=== PATIENT | female | born 1980 | race Caucasian/White ===

== ENCOUNTER 2016-06-15 16:55 | Outpatient (CLI) | payer MEDICAID ==
[~2016-06-15] VITALS: Ht 162.6 cm; Wt 98.4 kg
[2016-06-15] MEDS ORDERED: CALC600T11 PO (17:18)
[2016-06-15] MEDS ORDERED: FER325 PO (17:18)
[2016-06-15] MEDS ORDERED: PREN1TAB62 PO (17:18)
[2016-06-15] MEDS ORDERED: FOLI-49 PO (17:18)
[2016-06-15 17:19] VITALS: BP 113/56; PULSE 64; RESP 18; Ht 162.6 cm; Wt 98.4 kg
--- NOTE | 2016-06-15 19:02 | TRIAGE ---
OB Triage Datetime Report Generated by CPN: 06/15/2016 19:02 Datetime: 06/15/2016 18:00 Stage of : OB Triage Maternal Assessment Level of Consciousness: Fully Conscious Labor Evaluation Frequency: 2UC/HR Monitor Mode: External Duration (sec)2399: 50-70 Quality: Mild Resting Tone [place]: Relaxed Heart Rate FHR Baseline Rate: 135 Monitor Mode: External US Variability: Moderate 6-25 bpm Accelerations: 15X15 Decelerations: None Category: Category I Pain Assessment Pain Scale: 0 Pain Presence: None/Denies Pain Goal: 3 Vaginal Exam Membrane Status: Intact Vaginal Bleeding: None Datetime: 06/15/2016 17:16 Assessment Type: Triage Maternal Assessment Level of Consciousness: Fully Conscious DTR's/Clonus: DTRs 2+; No Clonus Headache: Denies Blurred Vision: No Respiratory Effort: Unlabored; Regular Rhythm; Equal Expansion Breath Sounds, Left: Clear and Equal Breath Sounds, Right: Clear and Equal Nausea/Vomiting: Denies RUQ Epigastric Pain: Denies Lower Extremities Edema: None Degree: None Upper Extremities Edema: None Degree: None Facial Edema: None Fall Risk Assessment History of Falling: (0) No Secondary Diagnosis: (0) No Ambulatory Aid: (0) Bedrest/Nurse Assist IV Therapy: (0) No Gait: (0) Normal/Bedrest/Immobile Mental Status: (0) Oriented to Own Ability Fall Score: 0 Fall Risk Score Definition: No Risk: No action required Datetime: 06/15/2016 17:15 Time of Arrival: 06/15/2016 16:50 EGA: 30.5 Arrived By: Ambulatory Arrived From: Home Chief Complaint: C/O VAG. 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
--- NOTE | 2016-06-15 19:05 | RADRPT ---
PROCEDURE: US biophysical profile. CLINICAL INDICATION: Bleeding. well-being. TECHNIQUE: Multiple sonographic images of the uterus were obtained. The images were revi ewed on a PACS workstation. COMPARISON: No prior studies are available for comparison. FINDINGS: There is a single live intrauterine gestation. heart rate is 152 beats per minute. The position is cephalic. The placenta is fundal, grade 1. No evidence of placental abruption or previa. The SANDIE is 18 cm. Cervical length measures 5 cm. Breathing Movement: 2 Gross Body Movement: 2 Tone: 2 Qualitative Amniotic Fluid Volume: 2 TOTAL: 8 IMPRESSION: 1. Single viable intrauterine gestation. 2. Biophysical profile = 8. 3. SANDIE = 18 cm. RPTAT: HH .Don Mcneil MD, MD Date Time Electronically viewed and signed by .Don Mcneil MD, MD on 06/15/2016 19:04 .N/
--- NOTE | 2016-06-15 23:32 | QN ---
Documentation Comment 36 years old with IUP at 30 weeks and 5 days with complaint of blood noted after she wiped herself. she reports having some burning sensation and discharge for the past couple of days. She states she was cleaning the introitus and vagina due to burning sensation and feels that likely she scratched the area. she was noted some blood on the tiolet paper and for that reason is here. PE: GA: A&O, NAD Abdomen: Soft, non tender, Gravid. Fundal height: Consistent with GA. SSE: Cervix closed and long. Cottage cheesy vaginal discharge consistent with yeast noted. No blood in the vault BPP: 11/15 Blood group: O+ CL: 5 SANDIE: 18 NST: Cat 1, no contractions seen on the monitor PROCEDURE: US biophysical profile. CLINICAL INDICATION: Bleeding. well-being. TECHNIQUE: Multiple sonographic images of the uterus were obtained. The images were reviewed on a PACS workstation. COMPARISON: No prior studies are available for comparison. FINDINGS: There is a single live intrauterine gestation. heart rate is 152 beats per minute. The position is cephalic. The placenta is fundal, grade 1. No evidence of placental abruption or previa. The SANDIE is 18 cm. Cervical length measures 5 cm. Breathing Movement: 2 Gross Body Movement: 2 Tone: 2 Qualitative Amniotic Fluid Volume: 2 TOTAL: 8 IMPRESSION: 1. Single viable intrauterine gestation. 2. Biophysical profile = 11/15. 3. SANDIE = 18 cm. RPTAT: HH Assessment: IUP at 30 weeks and 5 days Vaginal bleeding likely from scratching due to irritation secondary to Charo vulvovaginitis Rh+ No evidence of previa or abruption Patient advised to use clotrimazole vaginal cream nightly for the next 7 days labor precaution and kick count discussed Follow-up with OB office in 2-3 days recommended Patient verbalized understanding All questions were answered to the patient's best satisfaction RAJ MOMIN MD Jun 15, 2016 23:32
== END 2016-06-15 19:15 | disposition home or self-care (01) ==
LOC: L-D 16:55 → OBT 16:55
PROVIDERS: ATTEND Obstetrics & Gynecology
DX: O23.593 Infection of other part of genital tract in pregnancy, third trimester (principal); B37.3 Candidiasis of vulva and vagina; O09.523 Supervision of elderly multigravida, third trimester; Z3A.30 30 weeks gestation of pregnancy
CPT/HCPCS: 76817; 76818; Z7500; G0463

== ENCOUNTER 2016-07-22 09:52 | Inpatient (IN) | payer MEDICAID ==
[~2016-07-22] VITALS: Ht 167.6 cm; Wt 102.4 kg
[2016-07-22] MEDS: LACTATED RINGER'S 1,000 ML IV SCH ×4 (02:30→20:00)
[~2016-07-22 09:52] MED LIST: CALC600T11 PO; FER325 PO; FOLI-49 PO; PREN1TAB62 PO
[2016-07-22 10:11] VITALS: Ht 167.6 cm; Wt 102.4 kg
[2016-07-22 10:12] VITALS: BP 102/62; PULSE 72
[2016-07-22] MEDS ORDERED: CEPH500C PO (10:14)
--- NOTE | 2016-07-22 11:16 | RADRPT ---
PROCEDURE: OB ultrasound for biophysical profile CLINICAL INDICATION: Vaginal bleeding TECHNIQUE: Multiple sonographic images of the pelvis were obtained. Transabdominal views of the g ravid uterus are available for review. The images were reviewed on a PACS workstation. COMPARISON: None FINDINGS: breathing movement = 2/2 tone = 2/2 motion = 2/2 SANDIE = 2/2 SANDIE = 12.6 cm Single live intrauterine with cardiac activity of 121 bpm. position is cephal ic. The placenta is posterior. IMPRESSION: 1. Single live intrauterine gestation. 2. Biophysical profile = 8/8. 3. SANDIE = 12.6 cm. RPTAT: HH .Jolene Fraser MD, MD Date Time Electronically viewed and signed by .Jolene Fraser MD, on 07/22/2016 11:16 .G/
--- NOTE | 2016-07-22 11:19 | RADRPT ---
PROCEDURE: US OB. CLINICAL INDICATION: Size and dates TECHNIQUE: Multiple sonographic images of the pelvis were obtained. Transabdominal imaging only w as performed. The images were reviewed on a PACS workstation. COMPARISON: No prior studies are available for comparison. FINDINGS: There is a single live intrauterine gestation. Cardiac activity is present with 115 beats per minut e. position is cephalic. Measurements were made in order to determine age. The results are as follows: BPD = 8.76 cm HC = 32.89 cm AC = 35.05 cm FL = 6.86 cm. Estimated gestational age of approximately 36 weeks 6 days. The estimated date of delivery is 08/13/2016. The EFW = 3230 g, 88 %ile. The placenta is posterior. There is no evidence for an abruption or placenta previa. There are no adnexal masses. IMPRESSION: 1. Single live intrauterine gestation of approximately 36 weeks 6 days, by ultrasound criteria. 2. The estimated date of delivery is 08/13/2016. 3. The estimated weight is 3230 g, 88 %ile. RPTAT: HH .Jolene Fraser MD, Date Time Electronically viewed and signed by .Jolene Fraser MD, on 07/22/2016 11:19 .G/
[2016-07-22 11:20] LABS: ADD SCAN DIFF NO
[2016-07-22 11:25] LABS: BASOPHILS % 0.3 % (0.0-2.0); EOSINOPHILS # 0.1 10^3/ul (0.0-0.5); HEMATOCRIT 29.6 % (37.0-47.0); HEMOGLOBIN 9.9 g/dl (12.0-16.0); LYMPHOCYTES # 1.2 10^3/ul (0.8-2.9); LYMPHOCYTES % 17.6 % (15.0-51.0); MEAN CORPUSCULAR HGB CONC 33.4 g/dl (32.0-37.0); MEAN CORPUSCULAR VOLUME 89.7 fl (82.0-101.0); MEAN PLATELET VOLUME 11.1 fl (7.4-10.4); MONOCYTE # 0.5 10^3/ul (0.3-0.9); MONOCYTES % 7.8 % (0.0-11.0); NEUTROPHIL # 4.8 10^3/ul (1.6-7.5); NEUTROPHILS % 71.5 % (39.0-77.0); PLATELET COUNT 217 10^3/UL (140-415); RED CELL DISTRIBUTION WIDTH 13.4 % (11.5-14.5); WHITE BLOOD COUNT 6.7 10^3/ul (4.8-10.8)
[2016-07-22 11:39] LABS: INR 0.93; PROTIME 12.5 Sec (12.2-14.2)
[2016-07-22 11:40] LABS: PARTIAL THROMBOPLASTIN TIME 29.7 Sec (25.0-35.0)
[2016-07-22] MEDS ORDERED: CARBOPROST 250 MCG INJ IM PRN (12:30)
[2016-07-22] MEDS ORDERED: OXYTOCIN 30 UNITS/LR 500 ML IV SCH (12:30)
[2016-07-22] MEDS ORDERED: OXYTOCIN 30 UNITS/LR 500 ML IV PRN (12:30)
[2016-07-22] MEDS ORDERED: METHYLERGONOVINE 0.2 MG INJ IM PRN (12:30)
[2016-07-22] MEDS ORDERED: MISOPROSTOL 200 MCG TAB PR PRN (12:30)
[2016-07-22] MEDS ORDERED: BETAMET NA PHOS/AC(6 MG/ML) 5ML INJ IM ONE (12:30)
--- NOTE | 2016-07-22 13:38 | HP ---
Date/Time of Note Date/Time of Note DATE: 07/22/16 TIME: 13:36 OB - History Hx of Present Free Text/Dictation 36wks GA Previous c/section with Vaginal bleeding Care: Good Care Obstetrical Complications: None Medical Complications: None Past Family/Social History * Past Medical, Surgical, Family and Obstetric Histories reviewed from chart. OB Admission Exam Vital Signs Vital Signs Vital Signs Date Time Temp Pulse Resp B/P Pulse Ox O2 Delivery O2 Flow Rate FiO2 07/22/16 10:12 97.8 72 102/62 Physical Exam Abdomen: WNL Extremities: Normal Cervical Dilatation: None Membranes: Intact Heart Rate: 140's Accelerations: Accelerations Present Decelerations: No Decelerations Contractions on Admission: >10 Minutes Apart Last 72 hours Lab Results CBC & BMP 07/22/16 10:40 OB Assessment/Plan Reason for admission: observation Plan: Expectant Management Other plan: 36wks GA Previous c/section with Vaginal bleeding 2-3 clots in Vaginal vault No Active bleeding D/w Perinatalogist.Patient is admitted for Observation,Prenatalogy Consult,Steroids RJ NEWMAN M.D. Jul 22, 2016 13:38
--- NOTE | 2016-07-22 14:31 | PERINOTE ---
Date/Time of Note Date/Time of Note DATE: 07/22/16 TIME: 14:23 Assessment/Recommendations Other Assessments Late IUP History of vaginal bleeding, of uncertain etiology. Ultrasound reveals no placenta previa History of UTI Recommendations: Given the possibility that this patient will require early delivery, would agree with administration of steroids for lung maturity. Would perform a vaginal speculum exam to evaluate for a cervical cause of bleeding If no further bleeding would consider discharge home after steroid course. Would deliver at this time for heavy vaginal bleeding, or maternal distress. OB Subjective Free Text/Dictaton Patient with prior history of delivery is admitted with vaginal spotting at work. 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 On 07/22 she noted a small amount of vaginal bleeding on the tissue and in the toilet bowl. Patient also reports being on Keflex for a urinary infection. HD# 1 IUP @ 36 weeks Current Medications Current Medications Lactated Ringer's 1,000 ml @ 125 mls/hr Q8H IV Last administered on 07/22/16t 10:43; Admin Dose 125 MLS/HR; Start 07/22/16 at 10:30 Lactated Ringer's 1,000 ml @ 125 mls/hr Q8H IV ; Start 07/22/16 at 12:09 Oxytocin/Lactated Ringer's 500 ml @ 125 mls/hr ONCE IV ; Start 07/22/16 at 12: 30 Oxytocin/Lactated Ringer's 500 ml @ 0 mls/hr ONCE PRN IV For Hemorrhage Management; Start 07/22/16 at 12:30 Methylergonovine Maleate (Methergine) 0.2 mg ONCE PRN IM VAGINAL BLEEDING; Start 07/22/16 at 12:30 Carboprost Tromethamine (Hemabate) 250 mcg ONCE PRN IM VAGINAL BLEEDING; Start 07/22/16 at 12:30 Misoprostol (Cytotec) 1,000 mcg ONCE PRN SC VAGINAL BLEEDING; Start 07/22/16 at 12:30 Past Medical History Medical History: no pertinent history Surgical History: other ( delivery) [employer] History: no pertinent [employer] history Para: 1 : 2 LMP (Females 10-50): Family History Significant Family History: diabetes Social History Smoker: non-smoker Alcohol: none Drugs: none OB Admission Exam Physical Exam Vitals: Vital Signs Date Time Temp Pulse Resp B/P Pulse Ox O2 Delivery O2 Flow Rate FiO2 07/22/16 10:12 97.8 72 102/62 Heart: Rhythm Normal Lungs: Clear Abdomen: WNL Heart Rate: 120's Accelerations: Accelerations Present Decelerations: No Decelerations Varibility: Moderate Contractions on Admission: None Last 72 hours Lab Results CBC & BMP 07/22/16 10:40 Copies To: CC: RJ NEWMAN M.D., MARIE H MD Jul 22, 2016 14:31
[2016-07-23] MEDS: LACTATED RINGER'S 1,000 ML IV SCH ×3 (02:30→13:38)
--- NOTE | 2016-07-23 13:34 | PD.PPDC ---
[employer] Discharge Instruction Diagnosis Final Diagnosis: Vaginal bleeding at term, Hx of C/S x1 Condition Patient Condition: Good Diet Diet: Resume Regular Diet Activity/Restrictions Activity: Normal Activity Restrictions: No Exercising No Lifting No Sexual Activity Nothing in the Vagina No Tuttle No Tampons, douche Return to Work or School: Jul 26, 2016 (after discussing with Dr. Myrick) Follow-up Follow-up with Physician: 2, Day/Days CHANDNI MCGUIRE MD Jul 23, 2016 13:34
--- NOTE | 2016-07-23 13:39 | DS ---
Date/Time of Note Date/Time of Note DATE: 07/23/16 TIME: 13:35 Obstetrical Discharge Record Final Diagnosis Final Diagnosis: Term not delivered Other Final Diagnosis Vaginal bleeding, no indication of previa or abruption Complications Other (Vaginal bleeding; Hx of C/S x1) Condition on Discharge Physical Assessment Last Vitals: BP 117/60 P 83 FHT: Baseline 120s, mod gil, +accels, no decels [place]: Rare UC Voiding: Yes Breast: Soft, non-tender Abdomen and Incision: soft, gravid, nontender Calf Tenderness: No Patient Condition: Good CHANDNI MCGUIRE MD Jul 23, 2016 13:39
[2016-07-23] MEDS ORDERED: BETAMET NA PHOS/AC(6 MG/ML) 5ML INJ IM ONE (15:20)
== END 2016-07-23 15:15 | disposition home or self-care (01) | DRG 782 ==
LOC: L-D 09:52 → OBT 09:52 → L-D 11:45 → OBT 11:45 → L-D 12:13
PROVIDERS: ADMIT Obstetrics & Gynecology; ATTEND Obstetrics & Gynecology
DX: O46.93 Antepartum hemorrhage, unspecified, third trimester (principal); Z3A.36 36 weeks gestation of pregnancy
CPT/HCPCS: 36415; 76815; 76818; 85025; 85610; 85730; 86592; 86850; 86900; 86901; G0463; J0702; J7120

== ENCOUNTER 2016-07-25 16:36 | Inpatient (IN) | payer MEDICAID ==
[~2016-07-25] VITALS: Ht 167.6 cm; Wt 101.5 kg
[~2016-07-25 16:36] MED LIST changes: +CEPH500C PO
[2016-07-25 17:12] VITALS: Ht 167.6 cm; Wt 101.5 kg
[2016-07-25 17:13] VITALS: BP 109/58; PULSE 74; RESP 18
--- NOTE | 2016-07-25 18:12 | RADRPT ---
PROCEDURE: US OB biophysical profile. CLINICAL INDICATION: evaluation, contractions TECHNIQUE: Multiple sonographic images of the pelvis were obtained. The images were reviewed on a PACS workstation. COMPARISON: Obstetrical ultrasound from 07/22/2016 FINDINGS: There is a single viable intrauterine gestation. Cardiac activity is present with 149 beats per min tj. There is a vertex presentation. The placenta is fundal in location. There is no evidence of placental abruption. There is a low amount of amniotic fluid with an SANDIE = 4.3 cm. Biophysical profile: movement 2/2 tone 2/2. breathing 2/2 SANDIE 0/2 Total 6/8 RPTAT: AA . IMPRESSION: Biophysical profile score of 6/8 due to oligohydramnios with an SANDIE of 4.3 cm. The amniotic fluid in dex was 12.6 on the most recent prior ultrasound from 07/22/2016. These findings were discussed with the nurse taking care of the patient, Ingrid Qureshikins, over the [facility] [place] on 07/25/2016 at 18:10 hours . Physician Caio Date Time Electronically viewed and signed by Physician Caio on 07/25/2016 18:11 /
--- NOTE | 2016-07-25 19:24 | TRIAGE ---
OB Triage Datetime Report Generated by CPN: 07/25/2016 19:24 Datetime: 07/25/2016 19:15 Stage of : OB Triage Labor Evaluation Frequency: 0 Monitor Mode: External Duration (sec)2399: 0 Resting Tone Dunean: Relaxed Heart Rate FHR Baseline Rate: 135 Monitor Mode: External US FHR Baseline Changes: No Baseline Change Variability: Moderate 6-25 bpm Accelerations: 15X15 Decelerations: None Category: Category I Membrane Status: Intact Datetime: 07/25/2016 18:39 Maternal Assessment Level of Consciousness: Fully Conscious DTR's/Clonus: DTRs 2+; No Clonus Headache: Denies Blurred Vision: No Respiratory Effort: Unlabored Breath Sounds, Left: Clear and Equal Breath Sounds, Right: Clear and Equal Nausea/Vomiting: Denies RUQ Epigastric Pain: Denies Facial Edema: None Labor Evaluation Frequency: 0 Monitor Mode: External Duration (sec)2399: 0 Resting Tone Dunean: Relaxed Heart Rate FHR Baseline Rate: 130 Monitor Mode: External US FHR Baseline Changes: No Baseline Change Variability: Moderate 6-25 bpm Accelerations: 15X15 Decelerations: None Category: Category I Pain Assessment Pain Scale: 0 Pain Presence: None/Denies Pain Type: N/A Pain Goal: 0 Membrane Status: Intact Datetime: 07/25/2016 18:07 Vaginal Exam Dilatation (cms): 0.0 Effacement (%): 50 Station: -2 Exam By: YAMIL GRIFFIN Vaginal Bleeding: None Cervix, Consistency: Firm Cervix, Position: Anterior Presentation 'A': Unable to Assess Lie 'A': Unable to Assess Datetime: 07/25/2016 17:58 Labor Evaluation Frequency: 0 Monitor Mode: External Duration (sec)2399: 0 Resting Tone Dunean: Relaxed Heart Rate FHR Baseline Rate: 150 Monitor Mode: External US FHR Baseline Changes: No Baseline Change Variability: Moderate 6-25 bpm Accelerations: 15X15 Decelerations: None Category: Category I Membrane Status: Intact Datetime: 07/25/2016 17:55 Respiratory Effort: Unlabored Breath Sounds, Left: Clear and Equal Breath Sounds, Right: Clear and Equal Labor Evaluation Frequency: 0 Monitor Mode: External Duration (sec)2399: 0 Resting Tone Dunean: Relaxed Heart Rate FHR Baseline Rate: 150 Monitor Mode: External US FHR Baseline Changes: No Baseline Change Variability: Moderate 6-25 bpm Accelerations: 15X15 Decelerations: None Category: Category I Pain Assessment Pain Scale: 0 Pain Presence: None/Denies Pain Type: N/A Pain Goal: 0 Pain Relief Measures: Comfort Measures Membrane Status: Intact Datetime: 07/25/2016 17:11 Headache: Denies Breath Sounds, Left: Clear and Equal Breath Sounds, Right: Clear and Equal RUQ Epigastric Pain: Denies Labor Evaluation Frequency: 0 Monitor Mode: External Duration (sec)2399: 0 Resting Tone Dunean: Relaxed Heart Rate FHR Baseline Rate: 145 Monitor Mode: External US FHR Baseline Changes: No Baseline Change Variability: Moderate 6-25 bpm Accelerations: 15X15 Decelerations: None Category: Category I Pain Assessment Pain Scale: 0 Pain Presence: None/Denies Pain Type: N/A Pain Goal: 0 Pain Relief Measures: Comfort Measures Membrane Status: Intact Datetime: 07/25/2016 17:06 Time of Arrival: 07/25/2016 17:06 EGA: 36.3 Arrived By: Ambulatory Arrived From: Office Chief Complaint: R/O U/S Movement: Present Contractions: Irregular Time Contractions Began: 07/24/2016 20:00 Contractions: 8-9 Rupture of Membranes: Denies Vaginal Bleeding: None Vaginal Discharge: Denies Recent Sexual Intercouse: Denies Abdominal Trauma: Not Applicable Patient Complaints: Contractions Additional Patient Complaints: REPEAT C/S X1 Datetime: 07/25/2016 16:58 Stage of : OB Triage Maternal Assessment Level of Consciousness: Fully Conscious DTR's/Clonus: DTRs 2+; No Clonus Headache: Denies Blurred Vision: No Respiratory Effort: Unlabored Breath Sounds, Left: Clear and Equal Breath Sounds, Right: Clear and Equal Nausea/Vomiting: Denies RUQ Epigastric Pain: Denies Facial Edema: None Labor Evaluation Frequency: X1 Monitor Mode: External Duration (sec)2399: 50 Pattern: Normal: <= 5 Contractions in 10 Minutes Resting Tone Dunean: Relaxed Heart Rate FHR Baseline Rate: 150 Monitor Mode: External US FHR Baseline Changes: No Baseline Change Variability: Moderate 6-25 bpm Accelerations: 15X15 Decelerations: None Category: Category I Pain Assessment Pain Scale: 0 Pain Presence: None/Denies Pain Type: N/A Pain Goal: 0 Pain Relief Measures: Comfort Measures Membrane Status: Intact Datetime: 07/23/2016 13:25 Labor Evaluation Frequency: X1 CONTRACTION NOTED IN THIS HR Monitor Mode: External Quality: Mild Pattern: Normal: <= 5 Contractions in 10 Minutes Resting Tone Dunean: Relaxed Heart Rate FHR Baseline Rate: 135 Monitor Mode: External US FHR Baseline Changes: No Baseline Change Variability: Moderate 6-25 bpm Accelerations: 15X15 Decelerations: None Category: Category I Comments: ASSESSED BY TRINH RN Datetime: 07/23/2016 13:24 Monitor Mode: External US Datetime: 07/23/2016 12:47 Temperature Route: Oral Datetime: 07/23/2016 12:34 Comments: PT MOVING AND CHANGING POSITION, US NOW DETECTING MATERNAL HEARTRATE Datetime: 07/23/2016 12:25 Labor Evaluation Frequency: OCC Monitor Mode: External Quality: Mild Pattern: Normal: <= 5 Contractions in 10 Minutes Resting Tone Dunean: Relaxed Heart Rate FHR Baseline Rate: 135 Monitor Mode: External US FHR Baseline Changes: No Baseline Change Variability: Moderate 6-25 bpm Accelerations: 15X15 Decelerations: None Category: Category I Comments: ASSESSED BY TRINH RN Datetime: 07/23/2016 11:54 Monitor Mode: External US Datetime: 07/23/2016 11:30 Monitor Mode: External Monitor Mode: External US Datetime: 07/23/2016 11:25 Labor Evaluation Frequency: OCC Monitor Mode: External Quality: Mild Pattern: Normal: <= 5 Contractions in 10 Minutes Resting Tone Dunean: Relaxed Heart Rate FHR Baseline Rate: 150 Monitor Mode: External US FHR Baseline Changes: No Baseline Change Variability: Moderate 6-25 bpm Accelerations: 15X15 Decelerations: None Category: Category I Comments: ASSESSED BY TRINH Pain Presence: None/Denies Pain Type: N/A Datetime: 07/23/2016 10:46 Monitor Mode: External Monitor Mode: External US Datetime: 07/23/2016 10:25 Labor Evaluation Frequency: 3-4UC/HR Monitor Mode: External Duration (sec)2399: 60-120 Quality: Mild Pattern: Normal: <= 5 Contractions in 10 Minutes Resting Tone Dunean: Relaxed Heart Rate FHR Baseline Rate: 150 Monitor Mode: External US FHR Baseline Changes: No Baseline Change Variability: Moderate 6-25 bpm Accelerations: 15X15 Decelerations: None Category: Category I Comments: ASSESSED BY TRINH RN Pain Presence: None/Denies Pain Type: N/A Datetime: 07/23/2016 09:25 Labor Evaluation Frequency: IRREG Monitor Mode: External Quality: Mild Pattern: Normal: <= 5 Contractions in 10 Minutes Resting Tone Dunean: Relaxed Heart Rate FHR Baseline Rate: 135 Monitor Mode: External US FHR Baseline Changes: No Baseline Change Variability: Moderate 6-25 bpm Accelerations: 15X15 Decelerations: None Category: Category I Comments: ASSESSED BY T.MAO RN Pain Assessment Pain Scale: 3 Pain Presence: Intermittent Pain Type: Cramping; Pressure Pain Location: Abdomen Pain Goal: 3 Pain Relief Measures: Comfort Measures Datetime: 07/23/2016 09:10 Vaginal Exam Dilatation (cms): 0.0 Effacement (%): 0 Station: -4 Exam By: EitanABIGAIL/TRINH Datetime: 07/23/2016 08:25 Labor Evaluation Frequency: IRREG Monitor Mode: External Quality: Mild Pattern: Normal: <= 5 Contractions in 10 Minutes Resting Tone Dunean: Relaxed Contraction Comments: PT SIDE-LYING, DIFFICULT TO TRACK CONTRACTIONS Heart Rate FHR Baseline Rate: 125 Monitor Mode: External US FHR Baseline Changes: No Baseline Change Variability: Moderate 6-25 bpm Accelerations: 15X15 Decelerations: Variable Category: Category II Comments: ASSESED BY TRINH RN Pain Assessment Pain Scale: 3 Pain Presence: Intermittent Pain Type: Cramping; Pressure Pain Location: Abdomen Pain Goal: 3 Pain Relief Measures: Comfort Measures Datetime: 07/23/2016 08:16 Monitor Mode: External US Datetime: 07/23/2016 08:12 Comments: PT SIDE LYING, HEART TRACING LOST OF CONTACT Datetime: 07/23/2016 07:25 Stage of : Antepartum Assessment Type: Ongoing Assessment Maternal Assessment Level of Consciousness: Fully Conscious DTR's/Clonus: DTRs 2+; No Clonus Headache: Denies Blurred Vision: No Respiratory Effort: Unlabored; Regular Rhythm; Equal Expansion Breath Sounds, Left: Clear and Equal Breath Sounds, Right: Clear and Equal Nausea/Vomiting: Denies RUQ Epigastric Pain: Denies Lower Extremities Edema: None Degree: None Upper Extremities Edema: None Degree: None Facial Edema: None Fall Risk Assessment History of Falling: (0) No Secondary Diagnosis: (0) No Ambulatory Aid: (0) Bedrest/Nurse Assist IV Therapy: (20) Yes Gait: (0) Normal/Bedrest/Immobile Mental Status: (0) Oriented to Own Ability Fall Score: 20 Fall Risk Score Definition: No Risk: No action required Comment: Labor Evaluation Frequency: 4-5 CONTRACTIONS NOTED THIS HOUR (4-5UC/HR) Monitor Mode: External Duration (sec)2399: 60-80 Quality: Mild Pattern: Normal: <= 5 Contractions in 10 Minutes Resting Tone Dunean: Relaxed Contraction Comments: IRREG Heart Rate FHR Baseline Rate: 135 Monitor Mode: External US FHR Baseline Changes: No Baseline Change Variability: Moderate 6-25 bpm Accelerations: 15X15 Decelerations: Variable Category: Category II Comments: ASSESSED BY TRINH RN Pain Assessment Pain Scale: 3 Pain Presence: Intermittent Pain Type: Cramping; Pressure Pain Location: Abdomen Pain Goal: 3 Pain Relief Measures: Comfort Measures Pain Assessment Comments: PT STATES OCCASIONAL LOWER ABDOMEN PAIN AND PRESSURE WITH CONTRACTIONS Datetime: 07/23/2016 06:00 Stage of : Antepartum Maternal Assessment Level of Consciousness: Fully Conscious DTR's/Clonus: DTRs 2+; No Clonus Headache: Denies Breath Sounds, Left: Clear and Equal Breath Sounds, Right: Clear and Equal Nausea/Vomiting: Denies RUQ Epigastric Pain: Denies Labor Evaluation Frequency: IRREG Monitor Mode: External Duration (sec)2399: 60 Quality: Mild Pattern: Normal: <= 5 Contractions in 10 Minutes Resting Tone Dunean: Relaxed Heart Rate FHR Baseline Rate: 125 Monitor Mode: External US FHR Baseline Changes: No Baseline Change Variability: Moderate 6-25 bpm Accelerations: 15X15 Decelerations: None Category: Category I Datetime: 07/23/2016 05:00 Stage of : Antepartum Maternal Assessment Level of Consciousness: Fully Conscious DTR's/Clonus: DTRs 2+; No Clonus Headache: Denies Breath Sounds, Left: Clear and Equal Breath Sounds, Right: Clear and Equal Nausea/Vomiting: Denies RUQ Epigastric Pain: Denies Labor Evaluation Frequency: IRREG Monitor Mode: External Duration (sec)2399: 60 Quality: Mild Pattern: Normal: <= 5 Contractions in 10 Minutes Resting Tone Dunean: Relaxed Heart Rate FHR Baseline Rate: 120 Monitor Mode: External US FHR Baseline Changes: No Baseline Change Variability: Moderate 6-25 bpm Accelerations: 15X15 Decelerations: Variable Category: Category I Datetime: 07/23/2016 04:00 Stage of : Antepartum Maternal Assessment Level of Consciousness: Fully Conscious DTR's/Clonus: DTRs 2+; No Clonus Headache: Denies Breath Sounds, Left: Clear and Equal Breath Sounds, Right: Clear and Equal Nausea/Vomiting: Denies RUQ Epigastric Pain: Denies Labor Evaluation Frequency: IRREG Monitor Mode: External Duration (sec)2399: 60 Quality: Mild Pattern: Normal: <= 5 Contractions in 10 Minutes Resting Tone Dunean: Relaxed Heart Rate FHR Baseline Rate: 120 Monitor Mode: External US FHR Baseline Changes: No Baseline Change Variability: Moderate 6-25 bpm Accelerations: 15X15 Decelerations: None Category: Category I Datetime: 07/23/2016 03:00 Stage of : Antepartum Maternal Assessment Level of Consciousness: Fully Conscious DTR's/Clonus: DTRs 2+; No Clonus Headache: Denies Breath Sounds, Left: Clear and Equal Breath Sounds, Right: Clear and Equal Nausea/Vomiting: Denies RUQ Epigastric Pain: Denies Labor Evaluation Frequency: IRREG Monitor Mode: External Duration (sec)2399: 60 Quality: Mild Pattern: Normal: <= 5 Contractions in 10 Minutes Resting Tone Dunean: Relaxed Heart Rate FHR Baseline Rate: 115 Monitor Mode: External US FHR Baseline Changes: No Baseline Change Variability: Moderate 6-25 bpm Accelerations: 15X15 Decelerations: Variable Category: Category I Datetime: 07/23/2016 02:00 Stage of : Antepartum Maternal Assessment Level of Consciousness: Fully Conscious DTR's/Clonus: DTRs 2+; No Clonus Headache: Denies Breath Sounds, Left: Clear and Equal Breath Sounds, Right: Clear and Equal Nausea/Vomiting: Denies RUQ Epigastric Pain: Denies Labor Evaluation Frequency: 3-8 Monitor Mode: External Duration (sec)2399: 60 Quality: Mild Pattern: Normal: <= 5 Contractions in 10 Minutes Resting Tone Dunean: Relaxed Heart Rate FHR Baseline Rate: 120 Monitor Mode: External US FHR Baseline Changes: No Baseline Change Variability: Moderate 6-25 bpm Accelerations: 15X15 Decelerations: None Category: Category I Datetime: 07/23/2016 01:00 Stage of : Antepartum Maternal Assessment Level of Consciousness: Fully Conscious DTR's/Clonus: DTRs 2+; No Clonus Headache: Denies Breath Sounds, Left: Clear and Equal Breath Sounds, Right: Clear and Equal Nausea/Vomiting: Denies RUQ Epigastric Pain: Denies Labor Evaluation Frequency: 3-8 Monitor Mode: External Duration (sec)2399: 60 Quality: Mild Pattern: Normal: <= 5 Contractions in 10 Minutes Resting Tone Dunean: Relaxed Heart Rate FHR Baseline Rate: 120 Monitor Mode: External US FHR Baseline Changes: No Baseline Change Variability: Moderate 6-25 bpm Accelerations: 15X15 Decelerations: None Category: Category I Datetime: 07/23/2016 00:00 Stage of : Antepartum Maternal Assessment Level of Consciousness: Fully Conscious DTR's/Clonus: DTRs 2+; No Clonus Headache: Denies Breath Sounds, Left: Clear and Equal Breath Sounds, Right: Clear and Equal Nausea/Vomiting: Denies RUQ Epigastric Pain: Denies Monitor Mode: External Resting Tone Dunean: Relaxed Heart Rate FHR Baseline Rate: 120 Monitor Mode: External US FHR Baseline Changes: No Baseline Change Variability: Moderate 6-25 bpm Accelerations: 15X15 Decelerations: None Category: Category I Datetime: 07/22/2016 23:00 Stage of : Antepartum Maternal Assessment Level of Consciousness: Fully Conscious DTR's/Clonus: DTRs 2+; No Clonus Headache: Denies Breath Sounds, Left: Clear and Equal Breath Sounds, Right: Clear and Equal Nausea/Vomiting: Denies RUQ Epigastric Pain: Denies Monitor Mode: External Resting Tone Dunean: Relaxed Heart Rate FHR Baseline Rate: 120 Monitor Mode: External US FHR Baseline Changes: No Baseline Change Variability: Moderate 6-25 bpm Accelerations: 15X15 Decelerations: None Category: Category I Datetime: 07/22/2016 22:00 Stage of : Antepartum Maternal Assessment Level of Consciousness: Fully Conscious DTR's/Clonus: DTRs 2+; No Clonus Headache: Denies Breath Sounds, Left: Clear and Equal Breath Sounds, Right: Clear and Equal Nausea/Vomiting: Denies RUQ Epigastric Pain: Denies Monitor Mode: External Resting Tone Dunean: Relaxed Heart Rate FHR Baseline Rate: 125 Monitor Mode: External US FHR Baseline Changes: No Baseline Change Variability: Moderate 6-25 bpm Accelerations: 15X15 Decelerations: None Category: Category I Datetime: 07/22/2016 21:00 Stage of : Antepartum Maternal Assessment Level of Consciousness: Fully Conscious DTR's/Clonus: DTRs 2+; No Clonus Headache: Denies Breath Sounds, Left: Clear and Equal Breath Sounds, Right: Clear and Equal Nausea/Vomiting: Denies RUQ Epigastric Pain: Denies Monitor Mode: External Resting Tone Dunean: Relaxed Heart Rate FHR Baseline Rate: 125 Monitor Mode: External US FHR Baseline Changes: No Baseline Change Variability: Moderate 6-25 bpm Accelerations: 15X15 Decelerations: None Category: Category I Datetime: 07/22/2016 20:00 Stage of : Antepartum Assessment Type: Ongoing Assessment Maternal Assessment Level of Consciousness: Fully Conscious DTR's/Clonus: DTRs 2+; No Clonus Headache: Denies Blurred Vision: No Respiratory Effort: Unlabored; Regular Rhythm; Equal Expansion Breath Sounds, Left: Clear and Equal Breath Sounds, Right: Clear and Equal Nausea/Vomiting: Denies RUQ Epigastric Pain: Denies Lower Extremities Edema: None Degree: None Upper Extremities Edema: None Degree: None Facial Edema: None Temperature Route: Oral Fall Risk Assessment History of Falling: (0) No Secondary Diagnosis: (0) No Ambulatory Aid: (0) Bedrest/Nurse Assist IV Therapy: (0) No Gait: (0) Normal/Bedrest/Immobile Mental Status: (0) Oriented to Own Ability Fall Score: 0 Fall Risk Score Definition: No Risk: No action required Comment: Monitor Mode: External Resting Tone Dunean: Relaxed Heart Rate FHR Baseline Rate: 125 Monitor Mode: External US FHR Baseline Changes: No Baseline Change Variability: Moderate 6-25 bpm Accelerations: 15X15 Decelerations: None Category: Category I Datetime: 07/22/2016 18:57 Labor Evaluation Frequency: IRREGULAR Monitor Mode: External Duration (sec)2399: 60 Quality: Mild Pattern: Normal: <= 5 Contractions in 10 Minutes Resting Tone Dunean: Relaxed Heart Rate FHR Baseline Rate: 130 Monitor Mode: External US FHR Baseline Changes: No Baseline Change Variability: Moderate 6-25 bpm Accelerations: 15X15 Decelerations: None Category: Category I Datetime: 07/22/2016 18:19 Labor Evaluation Frequency: 0 Monitor Mode: External Resting Tone Dunean: Relaxed Heart Rate FHR Baseline Rate: 125 Monitor Mode: External US FHR Baseline Changes: No Baseline Change Variability: Moderate 6-25 bpm Accelerations: 15X15 Decelerations: None Category: Category I Membrane Status: Intact Datetime: 07/22/2016 18:08 Stage of : Antepartum Datetime: 07/22/2016 17:42 Labor Evaluation Frequency: 0 Monitor Mode: External Quality: Mild Resting Tone Dunean: Relaxed Heart Rate FHR Baseline Rate: 125 Monitor Mode: External US Variability: Moderate 6-25 bpm Accelerations: 15X15 Decelerations: None Category: Category I Datetime: 07/22/2016 17:28 Heart Rate FHR Baseline Rate: 125 Monitor Mode: External US FHR Baseline Changes: No Baseline Change Variability: Moderate 6-25 bpm Accelerations: 15X15 Decelerations: None Category: Category I Pain Presence: None/Denies Datetime: 07/22/2016 17:27 Labor Evaluation Frequency: OCCASIONAL Monitor Mode: External Duration (sec)2399: 30-60 Pattern: Normal: <= 5 Contractions in 10 Minutes Resting Tone Dunean: Relaxed Datetime: 07/22/2016 17:05 Labor Evaluation Frequency: IRREG Monitor Mode: External Duration (sec)2399: 50-70 Quality: Mild Pattern: Normal: <= 5 Contractions in 10 Minutes Resting Tone Dunean: Relaxed Heart Rate FHR Baseline Rate: 125 Monitor Mode: External US Variability: Moderate 6-25 bpm Accelerations: 15X15 Decelerations: None Category: Category I Datetime: 07/22/2016 16:00 Labor Evaluation Frequency: IRREG Monitor Mode: External Duration (sec)2399: 50-70 Quality: Mild Pattern: Normal: <= 5 Contractions in 10 Minutes Resting Tone Dunean: Relaxed Heart Rate FHR Baseline Rate: 125 Monitor Mode: External US Variability: Moderate 6-25 bpm Accelerations: 15X15 Decelerations: None Datetime: 07/22/2016 15:17 Labor Evaluation Frequency: IRREG Monitor Mode: External Duration (sec)2399: 60-100 Quality: Moderate Pattern: Normal: <= 5 Contractions in 10 Minutes Resting Tone Dunean: Relaxed Heart Rate FHR Baseline Rate: 125 Monitor Mode: External US Variability: Moderate 6-25 bpm Accelerations: 15X15 Decelerations: None Category: Category I Datetime: 07/22/2016 14:00 Labor Evaluation Frequency: 0 Monitor Mode: External Quality: Mild Pattern: Normal: <= 5 Contractions in 10 Minutes Heart Rate FHR Baseline Rate: 115 Monitor Mode: External US Variability: Moderate 6-25 bpm Accelerations: 15X15 Decelerations: None Datetime: 07/22/2016 13:15 Time of Arrival: 07/22/2016 13:15 EGA: 36.0 Arrived By: Ambulatory Arrived From: Home Datetime: 07/22/2016 13:13 Labor Evaluation Frequency: 0 Monitor Mode: External Quality: Mild Pattern: Normal: <= 5 Contractions in 10 Minutes Heart Rate FHR Baseline Rate: 115 Monitor Mode: External US Variability: Moderate 6-25 bpm Accelerations: 15X15 Decelerations: None Category: Category I Datetime: 07/22/2016 12:33 Labor Evaluation Frequency: OCCASIONAL Monitor Mode: External Duration (sec)2399: 60 Quality: Mild Pattern: Normal: <= 5 Contractions in 10 Minutes Resting Tone Dunean: Relaxed Heart Rate FHR Baseline Rate: 125 Monitor Mode: External US FHR Baseline Changes: Bradycardia Variability: Moderate 6-25 bpm Accelerations: 15X15 Decelerations: None Category: Category I Datetime: 07/22/2016 12:20 Stage of : Labor Assessment Type: Admission Assessment Vaginal Bleeding: Scant Maternal Assessment Level of Consciousness: Fully Conscious DTR's/Clonus: DTRs 2+; No Clonus Headache: Denies Blurred Vision: No Respiratory Effort: Unlabored; Regular Rhythm; Equal Expansion Breath Sounds, Left: Clear and Equal Breath Sounds, Right: Clear and Equal Nausea/Vomiting: Denies RUQ Epigastric Pain: Denies Lower Extremities Edema: Bilateral Lower Extremities Degree: 1+ Upper Extremities Edema: None Degree: None Facial Edema: None Fall Risk Assessment History of Falling: (0) No Secondary Diagnosis: (0) No Ambulatory Aid: (0) Bedrest/Nurse Assist IV Therapy: (0) No Gait: (0) Normal/Bedrest/Immobile Mental Status: (0) Oriented to Own Ability Fall Score: 0 Fall Risk Score Definition: No Risk: No action required Labor Evaluation Frequency: NONE Pain Assessment Pain Scale: 0 Pain Presence: None/Denies Pain Type: N/A Pain Location: Abdomen Pain Goal: 0 Vaginal Exam Dilatation (cms): DEFFER Membrane Status: Intact Datetime: 07/22/2016 11:12 Labor Evaluation Frequency: 0 Monitor Mode: External Resting Tone Dunean: Relaxed Heart Rate FHR Baseline Rate: 125 Monitor Mode: External US Variability: Moderate 6-25 bpm Accelerations: 10X10 Decelerations: None Category: Category I Pain Assessment Pain Scale: 0 Pain Presence: None/Denies Pain Type: N/A Pain Goal: 3 Pain Relief Measures: Comfort Measures Datetime: 07/22/2016 10:21 Vaginal Exam Dilatation (cms): 0.0 Exam By: DR NEWMAN Vaginal Bleeding: Small Cervix, Consistency: Soft Cervix, Position: Posterior Presentation 'A': Cephalic Datetime: 07/22/2016 10:08 Stage of : OB Triage Assessment Type: Triage Maternal Assessment Level of Consciousness: Fully Conscious DTR's/Clonus: DTRs 2+; No Clonus Headache: Denies Blurred Vision: No Respiratory Effort: Unlabored; Regular Rhythm; Equal Expansion Breath Sounds, Left: Clear and Equal Breath Sounds, Right: Clear and Equal Nausea/Vomiting: Denies RUQ Epigastric Pain: Denies Facial Edema: None Temperature Route: Axillary Fall Risk Assessment History of Falling: (0) No Secondary Diagnosis: (0) No Ambulatory Aid: (0) Bedrest/Nurse Assist IV Therapy: (0) No Gait: (0) Normal/Bedrest/Immobile Mental Status: (0) Oriented to Own Ability Fall Score: 0 Fall Risk Score Definition: No Risk: No action required Labor Evaluation Frequency: APPLIED Monitor Mode: External Resting Tone Dunean: Relaxed Heart Rate FHR Baseline Rate: 135 Monitor Mode: External US Variability: Moderate 6-25 bpm Decelerations: None Category: Category I Pain Assessment Pain Scale: 0 Pain Presence: None/Denies Pain Type: N/A Datetime: 07/22/2016 10:07 Time of Arrival: 07/22/2016 09:55 EGA: 36.0 Arrived By: Ambulatory Arrived From: Home Chief Complaint: C/O BLEEDING X1 THIS AM, DENIES UC'S OR LEAKING Movement: Present Contractions: Denies/Absent Rupture of Membranes: Denies Vaginal Bleeding: Scant Vaginal Discharge: Present Recent Sexual Intercouse: Denies Patient Complaints: None Time Provider Notified: 07/22/2016 10:21 Provider Notified: TRENT Initial Plan: MONITOR, IV HYDRATION, C/S LABS, EFW, BPP Datetime: 06/15/2016 17:16 Fall Score: 0 Fall Risk Score Definition: No Risk: No action required Datetime: 06/15/2016 17:15 EGA: 30.5
[2016-07-25] MEDS ORDERED: CARBOPROST 250 MCG INJ IM PRN (19:30)
[2016-07-25] MEDS ORDERED: METHYLERGONOVINE 0.2 MG INJ IM PRN (19:30)
[2016-07-25] MEDS ORDERED: CEFAZOLIN 2 GM/50 ML (PMX) 50 ML IV SCH (19:30)
[2016-07-25] MEDS ORDERED: OXYTOCIN 30 UNITS/LR 500 ML IV SCH (19:30)
[2016-07-25] MEDS ORDERED: OXYTOCIN 30 UNITS/LR 500 ML IV PRN (19:30)
[2016-07-25] MEDS ORDERED: MISOPROSTOL 200 MCG TAB PR PRN (19:30)
[2016-07-25 20:07] LABS: ADD SCAN DIFF NO
--- NOTE | 2016-07-25 20:09 | RADRPT ---
PROCEDURE: Obstetrical ultrasound. CLINICAL INDICATION: , evaluation. Pelvic pain. Low amniotic fluid index TECHNIQUE: Transabdominal sonographic images of the pelvis are obtained. COMPARISON: OB ultrasound 07/25/2016, 07/22/2016 FINDINGS: Single intrauterine gestation. There is a cephalic presentation. Measurements were made in order to determine age. The results are as follows: BPD = 9.33 cm HC = 33.29 cm AC = 35.12 cm FL = 7.47 cm Heart rate = 163 beats per minute The placenta is fundal. There is no evidence for an abruption or placenta previa. Ovaries are not visualized. IMPRESSION: Single intrauterine gestation of approximately 38 weeks 2 days by ultrasound criteria. [place] estimated weight = 3537 g; 95 percentile for gestational age of 36 weeks 3 days. RPTAT: AADD .Walt Rene MD, Date Time Electronically viewed and signed by .Walt Rene MD, on 07/25/2016 20:08 .B/
[2016-07-25 20:10] LABS: BASOPHILS % 0.5 % (0.0-2.0); EOSINOPHILS # 0.2 10^3/ul (0.0-0.5); EOSINOPHILS % 1.9 % (0.0-7.0); HEMATOCRIT 31.2 % (37.0-47.0); HEMOGLOBIN 10.2 g/dl (12.0-16.0); LYMPHOCYTES # 1.7 10^3/ul (0.8-2.9); LYMPHOCYTES % 22.3 % (15.0-51.0); MEAN CORPUSCULAR HEMOGLOBIN 29.4 pg (29.0-33.0); MEAN CORPUSCULAR HGB CONC 32.7 g/dl (32.0-37.0); MEAN CORPUSCULAR VOLUME 89.9 fl (82.0-101.0); MEAN PLATELET VOLUME 10.4 fl (7.4-10.4); MONOCYTE # 0.7 10^3/ul (0.3-0.9); MONOCYTES % 9.1 % (0.0-11.0); NEUTROPHILS % 64.8 % (39.0-77.0); PLATELET COUNT 197 10^3/UL (140-415); RED BLOOD COUNT 3.47 10^6/ul (4.20-5.40); RED CELL DISTRIBUTION WIDTH 13.9 % (11.5-14.5); WHITE BLOOD COUNT 7.7 10^3/ul (4.8-10.8)
[2016-07-25 20:21] LABS: INR 0.94; PARTIAL THROMBOPLASTIN TIME 24.9 Sec (25.0-35.0); PROTIME 12.6 Sec (12.2-14.2)
[2016-07-25] MEDS: LACTATED RINGER'S 1,000 ML IV SCH ×2 (20:30→21:15)
[2016-07-25] MEDS ORDERED: OXYTOCIN 30 UNITS/LR 500 ML IV ONE (22:25)
[2016-07-25] MEDS ORDERED: EPHEDrine SULFATE 50 MG/5 ML SYG ONE (22:25)
[2016-07-25] MEDS ORDERED: METOCLOPRAMIDE 10 MG INJ ONE (22:26)
[2016-07-25] MEDS ORDERED: ONDANSETRON 4 MG INJ ONE (22:26)
[2016-07-25] MEDS ORDERED: OXYTOCIN 10 UNIT INJ ONE (22:26)
[2016-07-25] MEDS ORDERED: morphine SULFATE/PF (10 MG/10 ML) INJ ONE (22:26)
--- NOTE | 2016-07-25 22:29 | HP ---
Date/Time of Note Date/Time of Note DATE: 07/25/16 TIME: 22:26 OB - History Hx of Present Free Text/Dictation @36+wks with Oligohydramnios and CTX Previous c/section Patient admitted couple of days ago with Ctxs and vaginal bleeding Case D/w Perinatalogist and delivery is recommended : 2 Para: 1 Care: Good Care Ultrasounds: Normal mid trimester US Obstetrical Complications: None Medical Complications: None Past Family/Social History * Past Medical, Surgical, Family and Obstetric Histories reviewed from chart. OB Admission Exam Vital Signs Vital Signs Vital Signs Date Time Temp Pulse Resp B/P Pulse Ox O2 Delivery O2 Flow Rate FiO2 07/25/16 17:13 98.0 74 18 109/58 100 Room Air Physical Exam Abdomen: WNL Extremities: Normal Reflexes: Normal Cervical Dilatation: Fingertip Effacement: 25% Station: Ballotable Membranes: Intact Heart Rate: 140's Accelerations: Accelerations Present Decelerations: No Decelerations Varibility: Moderate Contractions on Admission: >10 Minutes Apart Last 72 hours Lab Results CBC & BMP 07/25/16 20:00 OB Assessment/Plan Reason for admission: section Plan: Section RJ NEWMAN M.D. Jul 25, 2016 22:29
--- NOTE | 2016-07-25 22:31 | OPR ---
Operative Report Planned Procedure Free Text/Dictation @36+wks with Oligohydramnios and CTX Previous c/section Patient admitted couple of days ago with Ctxs and vaginal bleeding Case D/w Perinatalogist and delivery is recommended Procedure date Jul 25, 2016 Procedure(s) repeat c/secion Performed by: RJ NEWMAN M.D. Assisting provider: ISAIAS GAMINO Anesthesiologist: ZION DEJESUS MD Pre-procedure diagnosis @36+wks with Oligohydramnios and CTX Previous c/section Patient admitted couple of days ago with Ctxs and vaginal bleeding Case D/w Perinatalogist and delivery is recommended Anesthesia Type: spinal Procedure Description Under satisfactory [] anesthesia, the patient was prepped and draped and placed in a supine position, tilted to the left. Pfannenstiel incision was made, carried through the subcutaneous tissue. Bleeders brought under control with electrocautery. Fascia incised to the length of the incision. Rectus muscles from the fascia, divided midline. Peritoneum exposed, entered through a transverse incision. Exploration of abdomen revealed gravid uterus. Bladder flap was developed. Transverse incision was made in the lower segment of the uterus. Amniotic sac ruptured. [] amniotic fluid noted. [] Nasal oropharyngeal suction was performed. The baby was handed to the team for immediate attention. The placenta was delivered manually intact. Uterine cavity was cleaned with wet sponge and drainage established. Uterus closed in 2 layers using [] in continuous fashion. Peritoneal cavity irrigated with warm saline. Sponge, needle and instrument count reported to be correct. Abdominal peritoneum closed with [] continuously. Rectus muscle approximated with []. Fascia closed with [], and skin closed with dermoband. Estimated blood loss [600 ]mL. Urine bag contained []mL of urine Post-Procedure Findings: Live Baby [], Apgars [] and [], weight [], position [], [] presentation []cord. Specimen removed: Yes Complications: None Pt Condition post procedure: stable Disposition: PACU Physician Certification I, the undersigned physician, hereby certify that I have discussed the procedure described in this consent form with this patient (or the patient's legal wholesale representative), including: * The risk and benefits of the procedure; * Any adverse reactions that may reasonably be expected to occur; * Any alternative efficacious methods of treatment which may be medically viable ; * The potential problems that may occur during recuperation; * Potential for blood transfusion and associated risks/benefits; and * Any research or economic interest I may have regarding this treatment. I further certify that the patient/legally responsible person was encouraged to ask question and that all questions were answered. RJ NEWMAN M.D. Jul 25, 2016 22:31
--- NOTE | 2016-07-25 23:32 | QN ---
Documentation Comment The first Op reporte is placed in error and prior to surgery RJ NEWMAN M.D. Jul 25, 2016 23:31
--- NOTE | 2016-07-25 23:34 | OPR ---
Operative Report Planned Procedure Free Text/Dictation @36+wks with Oligohydramnios and CTX Previous c/section Patient admitted couple of days ago with Ctxs and vaginal bleeding Case D/w Perinatalogist and delivery is recommended Procedure date Jul 25, 2016 Procedure(s) Repeat c/section Performed by: RJ NEWMAN M.D. Assisting provider: ISAISA GAMINO Anesthesiologist: ZION DEJESUS MD Pre-procedure diagnosis @36+wks with Oligohydramnios and CTX Previous c/section Patient admitted couple of days ago with Ctxs and vaginal bleeding Case D/w Perinatalogist and delivery is recommended Anesthesia Type: spinal Procedure Description Under satisfactory [] anesthesia, the patient was prepped and draped and placed in a supine position, tilted to the left. Pfannenstiel incision was made, carried through the subcutaneous tissue. Bleeders brought under control with electrocautery. Fascia incised to the length of the incision. Rectus muscles from the fascia, divided midline. Peritoneum exposed, entered through a transverse incision. Exploration of abdomen revealed gravid uterus. Bladder flap was developed. Transverse incision was made in the lower segment of the uterus. Amniotic sac ruptured. [] amniotic fluid noted. [] Nasal oropharyngeal suction was performed. The baby was handed to the team for immediate attention. The placenta was delivered manually intact. Uterine cavity was cleaned with wet sponge and drainage established. Uterus closed in 2 layers using [] in continuous fashion. Peritoneal cavity irrigated with warm saline. Sponge, needle and instrument count reported to be correct. Abdominal peritoneum closed with [] continuously. Rectus muscle approximated with []. Fascia closed with [], and skin closed with dermoband Estimated blood loss [800] mL. Urine bag contained []mL of urine The skin incision was extended 2 cm to deliver the baby's head No complication Vacum used to deliver the baby Fist vacuum was malfunctioning and replaced by scond vaccum Post-Procedure Findings: Live Baby [], Apgars [] and [], weight [], position [], [] presentation []cord. Physician Certification I, the undersigned physician, hereby certify that I have discussed the procedure described in this consent form with this patient (or the patient's legal registration representative), including: * The risk and benefits of the procedure; * Any adverse reactions that may reasonably be expected to occur; * Any alternative efficacious methods of treatment which may be medically viable ; * The potential problems that may occur during recuperation; * Potential for blood transfusion and associated risks/benefits; and * Any research or economic interest I may have regarding this treatment. I further certify that the patient/legally responsible person was encouraged to ask question and that all questions were answered. RJ NEWMAN M.D. Jul 25, 2016 23:34
[2016-07-26] VITALS (7 sets, daily range): BP systolic 90–112; BP diastolic 52–62; PULSE 72–133; RESP 18–19
[2016-07-26] MEDS ORDERED: ONDANSETRON 4 MG INJ IV PRN (00:30)
[2016-07-26] MEDS ORDERED: KETOROLAC 30 MG INJ IV PRN (00:30)
[2016-07-26] MEDS ORDERED: morphine 2 MG INJ IV PRN ×2 (00:30)
[2016-07-26] MEDS ORDERED: NALOXONE (0.4 MG/ML) INJ IV PRN (00:30)
[2016-07-26] MEDS ORDERED: morphine SULFATE/PF (10 MG/10 ML) INJ SPINAL ONE (00:30)
[2016-07-26] MEDS ORDERED: EPHEDrine SULFATE 50 MG/5 ML SYG IV PRN (00:30)
[2016-07-26] MEDS ORDERED: HYDROmorphONE 1 MG/ML SYG IV PRN ×2 (00:30)
[2016-07-26] MEDS ORDERED: DIPHENHYDRAMINE 50 MG INJ IV PRN (00:30)
[2016-07-26] MEDS ORDERED: LANOLIN 7 GM TUBE TOP PRN (02:00)
[2016-07-26] MEDS ORDERED: OXYCODONE/ACETAMINOPHEN (5/325) TAB PO PRN (02:00)
[2016-07-26] MEDS ORDERED: METHYLERGONOVINE 0.2 MG INJ IM PRN (02:00)
[2016-07-26] MEDS ORDERED: MISOPROSTOL 200 MCG TAB PR PRN (02:00)
[2016-07-26] MEDS ORDERED: CARBOPROST 250 MCG INJ IM PRN (02:00)
[2016-07-26] MEDS ORDERED: OXYTOCIN 30 UNITS/LR 500 ML IV PRN (02:00)
[2016-07-26] MEDS: LACTATED RINGER'S 1,000 ML IV SCH ×3 (03:35→21:06)
[2016-07-26] MEDS: IBUPROFEN 600 MG TAB PO SCH ×3 (06:00→18:00)
[2016-07-26 08:12] LABS: ADD SCAN DIFF NO
[2016-07-26 08:17] LABS: BASOPHILS % 0.2 % (0.0-2.0); EOSINOPHILS % 0.2 % (0.0-7.0); HEMATOCRIT 24.3 % (37.0-47.0); HEMOGLOBIN 7.8 g/dl (12.0-16.0); LYMPHOCYTES # 1.1 10^3/ul (0.8-2.9); MEAN CORPUSCULAR HEMOGLOBIN 29.5 pg (29.0-33.0); MEAN CORPUSCULAR HGB CONC 32.1 g/dl (32.0-37.0); MEAN PLATELET VOLUME 10.9 fl (7.4-10.4); MONOCYTE # 0.5 10^3/ul (0.3-0.9); MONOCYTES % 4.1 % (0.0-11.0); NEUTROPHIL # 11.6 10^3/ul (1.6-7.5); NEUTROPHILS % 86.7 % (39.0-77.0); PLATELET COUNT 156 10^3/UL (140-415); RED BLOOD COUNT 2.64 10^6/ul (4.20-5.40); RED CELL DISTRIBUTION WIDTH 13.8 % (11.5-14.5); WHITE BLOOD COUNT 13.3 10^3/ul (4.8-10.8)
[2016-07-26] MEDS: SENNA/DOCUSATE NA (8.6MG/50MG) TAB PO SCH ×2 (09:00→21:00)
--- NOTE | 2016-07-26 16:22 | QN ---
Documentation Comment POD#1 is stable afebrile tolerates diet No VB +Flatus Adequate urine VS stable Gen NAD Abd soft NT ND Incision intact Genitalia NO blood at perinium --->discharge plan tomorrow --->ambulation RJ NEWMAN M.D. Jul 26, 2016 16:21
[2016-07-26 22:38] LABS: ADD SCAN DIFF NO
[2016-07-26 22:44] LABS: BASOPHILS % 0.2 % (0.0-2.0); EOSINOPHILS % 0.3 % (0.0-7.0); HEMATOCRIT 24.8 % (37.0-47.0); HEMOGLOBIN 8.2 g/dl (12.0-16.0); LYMPHOCYTES # 1.3 10^3/ul (0.8-2.9); LYMPHOCYTES % 9.7 % (15.0-51.0); MEAN CORPUSCULAR HEMOGLOBIN 29.8 pg (29.0-33.0); MEAN CORPUSCULAR HGB CONC 33.1 g/dl (32.0-37.0); MEAN CORPUSCULAR VOLUME 90.2 fl (82.0-101.0); MEAN PLATELET VOLUME 10.7 fl (7.4-10.4); MONOCYTE # 0.8 10^3/ul (0.3-0.9); MONOCYTES % 5.7 % (0.0-11.0); NEUTROPHIL # 11.1 10^3/ul (1.6-7.5); NEUTROPHILS % 83.5 % (39.0-77.0); PLATELET COUNT 194 10^3/UL (140-415); RED BLOOD COUNT 2.75 10^6/ul (4.20-5.40); RED CELL DISTRIBUTION WIDTH 13.8 % (11.5-14.5); WHITE BLOOD COUNT 13.3 10^3/ul (4.8-10.8)
--- NOTE | 2016-07-26 23:00 | QN ---
Documentation Comment Called by the Nurse ,As the patient became tachcardic suddenly TN 120s to 130s HB 8.2 No significant change from this morning and does not seem she is bleeding She lost 800 cc blood during the surgery and Hb went down from 10 to 8 that is WNL BP is WNL Patient is asymtomatic --->Hospitalist is called for consult and management of Tachycardia RJ NEWMAN M.D. Jul 26, 2016 23:00
[2016-07-27] VITALS (9 sets, daily range): BP systolic 98–111; BP diastolic 52–67; PULSE 103–131; RESP 16–18
[2016-07-27] MEDS ORDERED: IBUPROFEN 600 MG TAB PO SCH
[2016-07-27] MEDS ORDERED: SOD CHLORIDE 0.9% 1,000 ML IV ONE (01:30)
[2016-07-27] MEDS: LACTATED RINGER'S 1,000 ML IV SCH ×2 (03:32→12:07)
[2016-07-27] MEDS: IBUPROFEN 600 MG TAB PO SCH ×5 (05:38→23:40)
[2016-07-27] MEDS: SENNA/DOCUSATE NA (8.6MG/50MG) TAB PO SCH ×2 (09:00→17:56)
--- NOTE | 2016-07-27 09:05 | RADRPT ---
Vent Rate: 133 bpm RR Interval: 0 msec [place] Interval: 164 msec QRS Duration: 66 msec QT Interval: 272 msec QTC Interval: 404 msec P-R-T [place]: 147 - 1 - -56 degrees Unusual P axis, possible ectopic atrial tachycardia Cannot rule out Anterior infarct , age undetermined Abnormal ECG Electronically Signed By: Anthony Lopes [id number]
[2016-07-27 10:23] LABS: ADD SCAN DIFF NO
[2016-07-27 10:33] LABS: BASOPHILS % 0.2 % (0.0-2.0); EOSINOPHILS # 0.1 10^3/ul (0.0-0.5); EOSINOPHILS % 0.6 % (0.0-7.0); HEMATOCRIT 26.3 % (37.0-47.0); HEMOGLOBIN 8.5 g/dl (12.0-16.0); LYMPHOCYTES # 1.3 10^3/ul (0.8-2.9); LYMPHOCYTES % 8.6 % (15.0-51.0); MEAN CORPUSCULAR HEMOGLOBIN 29.5 pg (29.0-33.0); MEAN CORPUSCULAR HGB CONC 32.3 g/dl (32.0-37.0); MEAN CORPUSCULAR VOLUME 91.3 fl (82.0-101.0); MONOCYTE # 0.8 10^3/ul (0.3-0.9); MONOCYTES % 5.4 % (0.0-11.0); NEUTROPHIL # 12.7 10^3/ul (1.6-7.5); NEUTROPHILS % 84.5 % (39.0-77.0); PLATELET COUNT 230 10^3/UL (140-415); RED BLOOD COUNT 2.88 10^6/ul (4.20-5.40); RED CELL DISTRIBUTION WIDTH 13.8 % (11.5-14.5); WHITE BLOOD COUNT 15.1 10^3/ul (4.8-10.8)
[2016-07-27 10:58] LABS: CHLORIDE 105 mmol/L (97-110)
[2016-07-27 10:59] LABS: ALBUMIN 2.7 g/dl (3.3-4.9); POTASSIUM 3.9 mmol/L (3.5-5.1); SODIUM 138 mmol/L (135-144)
[2016-07-27 11:01] LABS: CREATININE 0.65 mg/dl (0.44-1.00)
[2016-07-27 11:02] LABS: ALANINE AMINOTRANSFERASE 23 IU/L (13-69); ALBUMIN/GLOBULIN RATIO 0.93; ALKALINE PHOSPHATASE 107 IU/L (42-121); ANION GAP 11 (8-16); ASPARTATE AMINO TRANSFERASE 33 IU/L (15-46); BILIRUBIN,INDIRECT 0.1 mg/dl (0-1.1); BILIRUBIN,TOTAL 0.1 mg/dl (0.2-1.3); BLOOD UREA NITROGEN 7 mg/dl (7-20); CALCIUM 8.5 mg/dl (8.4-10.2); CARBON DIOXIDE 26 mmol/L (21-31); CREATINE KINASE 492 IU/L (23-200); GLUCOSE 127 mg/dl (70-220); MAGNESIUM 1.6 mg/dl (1.7-2.5); TOTAL PROTEIN 5.6 g/dl (6.1-8.1)
[2016-07-27 11:15] LABS: TROPONIN-I < 0.012 ng/ml (0.00-0.12)
--- NOTE | 2016-07-27 11:48 | CONS ---
DATE OF ADMISSION: 07/25/2016 DATE OF CONSULTATION: 07/27/2016 TIME OF EVALUATION: 9:30 a.m. REQUESTING PHYSICIAN: Dr. Myrick, OB CONSULTING PHYSICIAN: Emma Huitron, Internal Medicine REASON FOR CONSULTATION: Medical management. HISTORY OF PRESENT ILLNESS: This is a 36-year-old female who underwent a on 07/25/2016 and had a term baby. On 07/26/2016 around 2300, the patient started having tachycardia that was sudden in onset. The patient denied any dyspnea or palpitations. Per the OB report, the patient lost about 800 mL of blood during the . The patient's hemoglobin and hematocrit went down after the surgery. The patient's 12-lead EKG showed sinus tachycardia with unusual P axis and possible ectopic atrial tachycardia. The on -call hospitalist at nighttime gave an order for IV bolus and the patient responded well to the IV bolus. At the time of my examination, the patient denied any palpitations or shortness of breath. The patient verbalized that she was feeling some hot flashes. She denied any chest pain. The patient was complaining of incisional pain. PAST MEDICAL HISTORY: Denies. PAST SURGICAL HISTORY: . HOME MEDICATIONS: No regular home medications. ALLERGIES: No known drug allergies. SOCIAL HISTORY: The patient lives at home. Denies any use of tobacco, alcohol or illicit drugs. 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 FAMILY HISTORY: Positive for diabetes and hypertension. REVIEW OF SYSTEMS: A 12-point review was made, and the review of systems was negative other than what is mentioned in history of present illness. PHYSICAL EXAMINATION: VITAL SIGNS: Temperature 98.2, pulse rate 106, respiratory rate 18, blood pressure 105/67, oxygen saturation 96% on room air. GENERAL: This is an obese female lying in bed in no apparent distress. HEENT: Head normocephalic and atraumatic. Eyes: Anicteric sclerae. Conjunctivae clear. ENT: Nasal septum is midline. Oral mucosa is moist. NECK: Supple. No JVD noticed. RESPIRATORY: Bilaterally clear to auscultation. No adventitious breath sounds heard. No use of accessory muscles of respiration. CARDIAC: Regular rate and rhythm. No murmurs heard. Tachycardia. ABDOMEN: Lower segment incision covered with surgical dressing. No blood drainage on the dressing. GENITOURINARY: The patient has a Stanley catheter in place. EXTREMITIES: No cyanosis, no clubbing. Bilateral 1+ pitting edema. Peripheral pulses palpable. NEUROLOGIC: The patient is awake, alert and oriented. Cranial nerves are grossly intact. LABORATORY AND DIAGNOSTIC DATA: WBC 13.3, hemoglobin 8.2, hematocrit 24.8, platelet count 194. 12-lead EKG: Sinus tachycardia. Unusual P axis. Possible ectopic atrial tachycardia. IMPRESSION: This is a 36-year-old female with no past medical history who had a term baby by who had an episode of transient sinus tachycardia, which is currently resolving. ASSESSMENT AND PLAN: 1. Sinus tachycardia. Most probably secondary to the volume loss from C- section. The patient's tachycardia has improved with volume resuscitation. However, the patient will be evaluated for any underlying hyperthyroidism. The patient's 12-lead EKG showed unusual P axis and possible ectopic atrial tachycardia. Serum electrolyte levels will be obtained. A repeat 12-lead EKG will be obtained. 2. Term with oligohydramnios. Status post . Management as per INSPECTOR OF DREDGING. 3. Normocytic normochromic anemia. Most probably secondary to acute blood loss. Monitor the H and H closely. Transfusion will be deferred to INSPECTOR OF DREDGING. Additional diagnostic and therapeutic orders will be added as clinically indicated. The case and management of this patient was fully discussed with Dr. Underwood. Thank you, Dr. Myrick, for allowing us to participate in this patient's care. We will continue to follow the patient with you. If you have any questions or concerns, do not hesitate to call us back at extension [phone]. URMILA UNDERWOOD MD, AM/FAVIAN Conf#: [id number] DID#: [id number] MTDD
[2016-07-27 12:04] LABS: CHOL/HDL RATIO 3.2 RATIO
[2016-07-28 03:30] VITALS: BP 93/54; PULSE 85; RESP 18
[2016-07-28] MEDS: IBUPROFEN 600 MG TAB PO SCH ×2 (05:41→12:21)
[2016-07-28 08:30] VITALS: BP 103/52; PULSE 79; RESP 14
[2016-07-28] MEDS ORDERED: DIPHTH/TET/ACEL PERTUSS (ADULT) 0.5 ML VIAL IM* ONE (09:00)
--- NOTE | 2016-07-28 09:59 | PN ---
Date/Time of Note Date/Time of Note DATE: 07/28/16 TIME: 09:58 Assessment/Plan VTE Prophylaxis VTE Prophylaxis Intervention: SCD's Lines/Catheters IV Catheter Type (from Nrs): Peripheral IV Assessment/Plan Chief Complaint/Hosp Course 1. Sinus tachycardia. Most probably secondary to the volume loss from C- section. The patient's tachycardia has improved with volume resuscitation. Thyroid panel showing subclinical hyperthyroidism. May need outpatient follow- up. No need for any medications at this time. 2. Term with oligohydramnios. Status post . Management as per SENIOR CHEMICAL ENGINEER. 3. Normocytic normochromic anemia. Most probably secondary to acute blood loss. Monitor the H and H closely. Transfusion will be deferred to SENIOR CHEMICAL ENGINEER. 4. Dyslipidemia. Low-cholesterol diet advised. Weight reduction advised. 5. Obesity. BMI of 36.1 kg/m. Weight reduction advised. 6. Fluids, electrolytes, and nutrition. Regular, preferably low-cholesterol diet. 7. Plan. The patient may be discharged home from medical standpoint. Thank you for the consult. Case discussed with . Problems: Subjective 24 Hr Interval Summary Free Text/Dictation Denies any complaints. Incisional pain well controlled. Exam/Review of Systems Vital Signs Vitals Vital Signs Date Time Temp Pulse Resp B/P Pulse Ox O2 Delivery O2 Flow Rate FiO2 07/28/16 08:30 98.2 79 14 103/52 Room Air 07/26/16 20:00 96 21 Intake and Output 07/27/16 07/27/16 07/28/16 15:00 23:00 07:00 Output Total 1700 ml 1100 ml Balance -1700 ml -1100 ml Exam GENERAL: This is an obese female lying in bed in no apparent distress. HEENT: Head normocephalic and atraumatic. Eyes: Anicteric sclerae. Conjunctivae clear. ENT: Nasal septum is midline. Oral mucosa is moist. NECK: Supple. No JVD noticed. RESPIRATORY: Bilaterally clear to auscultation. No adventitious breath sounds heard. No use of accessory muscles of respiration. CARDIAC: Regular rate and rhythm. No murmurs heard. Tachycardia. ABDOMEN: Lower segment incision covered with surgical dressing. No blood drainage on the dressing. GENITOURINARY: The patient has a Stanley catheter in place. EXTREMITIES: No cyanosis, no clubbing. Bilateral 1+ pitting edema. Peripheral pulses palpable. NEUROLOGIC: The patient is awake, alert and oriented. Cranial nerves are grossly intact. Results Result Diagram: 07/27/16 0950 07/27/16 0950 Medications Medications Current Medications Oxycodone/ Acetaminophen (Percocet (5/ 325)) 2 tab Q4H PRN PO PAIN LEVEL 7-10; Start 07/26/16 at 02:00 Simethicone (Mylicon) 160 mg Q8H PRN PO DISTENSION/GAS/BLOATING; Start at 02:00 Senna/Docusate Sodium (Senokot-S) 1 tab BID PO Last administered on 07/27/16 17:56; Admin Dose 1 TAB; Start 07/26/16 at 09:00 Methylergonovine Maleate (Methergine) 0.2 mg ONCE PRN IM VAGINAL BLEEDING; Start 07/26/16 at 02:00 Carboprost Tromethamine (Hemabate) 250 mcg ONCE PRN IM VAGINAL BLEEDING; Start 07/26/16 at 02:00 Misoprostol (Cytotec) 1,000 mcg ONCE PRN WI VAGINAL BLEEDING; Start 07/26/16 at 02:00 Ibuprofen (Motrin) 600 mg Q6 PO Last administered on 07/28/16 05:41; Admin Dose 600 MG; Start 07/26/16 at 06:00 URMILA GONZALES NP Jul 28, 2016 09:59
[2016-07-28] MEDS: SENNA/DOCUSATE NA (8.6MG/50MG) TAB PO SCH (10:12)
--- NOTE | 2016-07-29 09:30 | RADRPT ---
Vent Rate: 118 bpm RR Interval: 0 msec [place] Interval: 138 msec QRS Duration: 72 msec QT Interval: 318 msec QTC Interval: 445 msec P-R-T [place]: 53 - 40 - 36 degrees Sinus tachycardia Otherwise normal ECG Electronically Signed By: Anthony Lopes [id number]
== END 2016-07-28 14:50 | disposition home or self-care (01) | DRG 765 ==
LOC: OBT 16:36 → L-D 16:36 → OBT 18:38 → L-D 18:38 → PP1 07-26 02:10
PROVIDERS: ADMIT Obstetrics & Gynecology; ATTEND Obstetrics & Gynecology
PROC: 10D00Z1 Extraction of Products of Conception, Low, Open Approach (ICD-10-PCS; principal; 2016-07-25)
DX: O60.14X0 Preterm labor third trimester with preterm delivery third trimester, not applicable or unspecified (principal); O41.03X0 Oligohydramnios, third trimester, not applicable or unspecified; O99.02 Anemia complicating childbirth; Z3A.36 36 weeks gestation of pregnancy; Z37.0 Single live birth
CPT/HCPCS: 76815; 76818; 80053; 80061; 82550; 82553; 83036; 83735; 84439; 84443; 84484; 85025; 85610; 85730; 86592; 86850; 86900; 86901; 86920; 90715; 93005; 94760; 99464; G0463; J0690; J2274; J2405; J2590; J2765; J7030; J7120